=== PATIENT | female | born 1930 | race Caucasian/White ===

== ENCOUNTER 2016-06-27 13:44 | Emergency (ER) | payer MEDICARE ==
[2016-06-27 14:35] VITALS: TEMP 98.6; BMI 19.8
--- NOTE | 2016-06-27 15:57 | EDPRACDOC ---
- General Information Information Source: Patient Mode Of Arrival: Car - History of Present Illness Onset: 1 day Pain Location: Reports: RUQ, RLQ, Periumbilical Pain Context: Reports: Spontaneous Pain Severity: Moderate Pain Quality: Reports: Aching Pain Radiation: Reports: No Radiation Adult Abdominal History: Reports: Abdominal Surgery (appy). Denies: Urolithiasis, Bowel Obstruction Female Abdominal History: Denies: Abdominal Surgery, Urolithiasis Modifying Factors: improves with: Nothing Female Associated Signs & Symptoms: Reports: Frequency, Dysuria, Urgency Oral Intake: Normal <Darrell Alvarez - Last Filed: 06/27/16 19:23> <Ken Cuadra - Last Filed: 06/27/16 21:07> - General Information Chief Complaint: Abdominal Pain Stated Complaint: URINARY URGENCY/RETENTION Home Medications: Home Medications Allervite 1 tab PO DAILY 06/27/16 Ascorbic Acid [Vitamin C] 500 mg PO BID 06/27/16 Cholecalciferol (Vitamin D3) [Vitamin D3] 1,000 unit PO DAILY 06/27/16 Ciprofloxacin HCl [Cipro] 500 mg PO BID #20 tab 06/27/16 Ketorolac Tromethamine [Toradol] 10 mg PO Q6H PRN #20 tab 06/27/16 Ubidecarenone [Co Q-10] 75 mg PO DAILY 06/27/16 Vit A/C/E AC/Znox/Cupric Oxide [Eye Vitamin-Minerals Tablet] 1 tab PO DAILY 04/03 Allergies/Adverse Reactions: Allergies Allergy/AdvReac Type Severity Reaction Status Date / Time codeine Allergy Nausea only Verified 06/27/16 14:35 - History of Present Illness HPI: C/o inc urinary freq with urinary discomfort and periumbilical and right side abdo pain since last night. Denies fever, N/V/D, cp, sob, cough, sore throat. Med hx = none. Surgical hx = appy. (Darrell Alvarez) ED Past Medical History - History Reviewed Yes Nurses notes reviewed and agree except as marked - Patient Medical History Neurological History: Denies: Cerebrovascular Accident, Seizures Cardiac History: Denies: Coronary Artery Disease, Atrial Fibrillation Respiratory History: Denies: Asthma, Emphysema GI/ History: Denies: Renal Disease, Ulcer Musculoskeletal History: Denies: Gout, Rheumatoid Arthritis Psychological History: Denies: Depression, Anxiety Systemic History: Denies: Cancer, Diabetes Surgical History: Reports: Appendectomy (2 months) - Family Medical History Reports: Hypertension (Mother), Cancer (Sister lung CA), Stroke (Mother). Denies: Diabetes, Cardiac Disorders - Social Medical History Smoking Status: Never smoker <Darrell Alvarez - Last Filed: 06/27/16 19:23> EDM Review of Systems - Review of Systems ROS Negative Except as Marked: Yes All systems reviewed and were negative except as marked Gastrointestinal: Pain Genitourinary: Dysuria, Frequency <Darrell Alvarez - Last Filed: 06/27/16 19:23> - Physical Exam Constitutional: No apparent distress, Alert Oriented to: Time, Person, Place - HEENT Head: Normal Eye Exam: negative: Conjunctival Injection, Scleral Icterus Oropharynx: negative: Drooling TMJ: Normal Nose: No Symptoms Reported Neck: Normal - Respiratory/Cardiovascular Respiratory: Normal - CTA Cardiovascular: Normal - GI Auscultation: Normal Tenderness: Non tender - Musculoskeletal Back: CVA Tenderness (left mild) Extremities: Normal - Integumentary Skin: Normal - Neurologic Mood Description: Normal Thought: Coherent <Darrell Alvarez - Last Filed: 06/27/16 19:23> - Results 06/27/16 16:12 06/27/16 16:12 <Darrell Alvarez - Last Filed: 06/27/16 19:23> - Results 06/27/16 16:12 06/27/16 16:12 <Ken Cuadra - Last Filed: 06/27/16 21:07> - Results WBC 5.5 xk/uL (3.8-10.8) 06/27/16 16:12 RBC 3.27 xM/uL (4.20-5.40) L 06/27/16 16:12 Hgb 11.3 g/dL (12.0-16.0) L 06/27/16 16:12 Hct 32.9 % (36-47) L 06/27/16 16:12 MCV 101 fL (81-99) H 06/27/16 16:12 MCH 34.4 pg (27-32) H 06/27/16 16:12 MCHC 34.2 g/dl (33-36) 06/27/16 16:12 RDW 13.2 % (11.5-14.5) 06/27/16 16:12 Plt Count 214 xk/uL (130-400) 06/27/16 16:12 MPV 8.0 fL (7.4-10.4) 06/27/16 16:12 Neut % (Auto) 70.0 % (45-76) 06/27/16 16:12 Lymph % (Auto) 18.9 % (17-44) 06/27/16 16:12 [place] % (Auto) 9.6 % (3-10) 06/27/16 16:12 Eos % (Auto) 1.0 % (0-5) 06/27/16 16:12 Baso % (Auto) 0.5 % (0-2) 06/27/16 16:12 Absolute Neuts (auto) 3.85 xk/uL (1.7-8.2) 06/27/16 16:12 Absolute Lymphs (auto) 0.99 xk/uL (0.65-4.75) 06/27/16 16:12 Sodium 139 mEq/L (137-146) 06/27/16 16:12 Potassium 3.7 mEq/L (3.5-5.1) 06/27/16 16:12 Chloride 99 mEq/L (98-107) 06/27/16 16:12 Carbon Dioxide 32 mMOL/L (22-33) 06/27/16 16:12 Anion Gap 12 mEq/L (8-16) 06/27/16 16:12 BUN 14 MG/DL (7-17) 06/27/16 16:12 Creatinine 0.70 MG/DL (0.52-1.04) 06/27/16 16:12 Estimated GFR (MDRD) > 60 mL/min (>=60) 06/27/16 16:12 Glucose 106 MG/DL (70-99) H 06/27/16 16:12 Calculated Osmolality 269 MOs/Kg (270-290) L 06/27/16 16:12 Calcium 9.4 MG/DL (8.4-10.2) 06/27/16 16:12 Total Bilirubin 0.3 MG/DL (0.2-1.3) 06/27/16 16:12 AST 42 IU/L (14-36) H 06/27/16 16:12 ALT 34 IU/L (9-52) 06/27/16 16:12 Alkaline Phosphatase 41 IU/L (55-165) L 06/27/16 16:12 Total Protein 7.4 G/DL (6.3-8.2) 06/27/16 16:12 Albumin 4.2 G/DL (3.5-5.0) 06/27/16 16:12 Urine Color Yellow 06/27/16 15:35 Urine Clarity Hazy 06/27/16 15:35 Urine pH 5.0 (5.0-8.0) 06/27/16 15:35 Ur Specific [place] 1.025 (1.003-1.035) 06/27/16 15:35 Urine Protein 2+ (NEG/TRACE) H 06/27/16 15:35 Urine Glucose (UA) Neg (NEGATIVE) 06/27/16 15:35 Urine Ketones Neg (NEGATIVE) 06/27/16 15:35 Urine Occult Blood Neg (NEG/TRACE) 06/27/16 15:35 Urine Nitrite Neg (NEGATIVE) 06/27/16 15:35 Urine Bilirubin Neg (NEGATIVE) 06/27/16 15:35 Urine Urobilinogen <2.0 MG/DL (0-1) 06/27/16 15:35 Ur Leukocyte Esterase Trace (NEGATIVE) H 06/27/16 15:35 Urine RBC 20-30 (0-5) H 06/27/16 15:35 Urine WBC Tntc (0-5) H 06/27/16 15:35 Ur Epithelial Cells Occ 06/27/16 15:35 Urine Bacteria Few (NEG/FEW) 06/27/16 15:35 Hyaline Casts 5-10 (0-2) H 06/27/16 15:35 Urine Mucus Sm amt (NEG/OCC) 06/27/16 15:35 Lab Results 06/27/16 06/27/16 06/27/16 16:12 16:12 15:35 WBC 5.5 RBC 3.27 L Hgb 11.3 L Hct 32.9 L MCV 101 H MCH 34.4 H MCHC 34.2 RDW 13.2 Plt Count 214 MPV 8.0 Neut % (Auto) 70.0 Lymph % (Auto) 18.9 [place] % (Auto) 9.6 Eos % (Auto) 1.0 Baso % (Auto) 0.5 Absolute Neuts (auto) 3.85 Absolute Lymphs (auto) 0.99 Sodium 139 Potassium 3.7 Chloride 99 Carbon Dioxide 32 Anion Gap 12 BUN 14 Creatinine 0.70 Estimated GFR (MDRD) > 60 Glucose 106 H Calculated Osmolality 269 L Calcium 9.4 Total Bilirubin 0.3 AST 42 H ALT 34 Alkaline Phosphatase 41 L Total Protein 7.4 Albumin 4.2 Urine Color Yellow Urine Clarity Hazy Urine pH 5.0 Ur Specific [place] 1.025 Urine Protein 2+ H Urine Glucose (UA) Neg Urine Ketones Neg Urine Occult Blood Neg Urine Nitrite Neg Urine Bilirubin Neg Urine Urobilinogen <2.0 Ur Leukocyte Esterase Trace H Urine RBC 20-30 H Urine WBC Tntc H Ur Epithelial Cells Occ Urine Bacteria Few Hyaline Casts 5-10 H Urine Mucus Sm amt (Ken Cuadra) - Departure Disposition: Home Education/Counseling Given To: Patient Education/Counseling Given Regarding: Diagnosis, Treatment, Prognosis, Follow Up <Darrell Alvarez - Last Filed: 06/27/16 19:23> Decision Time to Discharge: 21:07 - Departure Yes I personally saw and evaluated the patient. <Ken Cuadra - Last Filed: 06/27/16 21:07> - Departure Condition: Stable Final Diagnosis: UTI (urinary tract infection) Qualifiers: Urinary tract infection type: site unspecified Hematuria presence: without hematuria Qualified Code(s): N39.0 - Urinary tract infection, site not specified Instructions: Acute Abdominal Pain (ED), Urinary Tract Infection in Women (ED) , Dysuria Referrals: None,No Provider [Primary Care Provider] - One Week Neil Reyes MD [Staff Physician] - One Week Prescriptions: Ciprofloxacin HCl [Cipro] 500 mg PO BID #20 tab Ketorolac Tromethamine [Toradol] 10 mg PO Q6H PRN #20 tab PRN Reason: Pain Additional Instructions: Follow up with primary care. Take cipro twice a day for 10 days for urinary tract infection. Take tylenol for pain. Return to ED for any new or worsening symptoms.
[2016-06-27 16:16] LABS: LEUKOCYTES/URINE TRACE (NEGATIVE); NITRITE/URINE NEG (NEGATIVE); RBC/URINE 20-30 (0-5); URINE OCCULT BLOOD NEG (NEG/TRACE); WBC/URINE TNTC (0-5)
[2016-06-27 16:19] LABS: AUTOMATED BASOPHIL 0.5 % (0-2); AUTOMATED LYMPH 18.9 % (17-44); AUTOMATED MONOCYTE 9.6 % (3-10)
[2016-06-27 16:33] LABS: BLOOD UREA NITROGEN 14 MG/DL (7-17); CALCIUM 9.4 MG/DL (8.4-10.2); CALCULATED OSMOLALITY 269 MOs/Kg (270-290); CHLORIDE 99 mEq/L (98-107); GLUCOSE 106 MG/DL (70-99); SODIUM LEVEL 139 mEq/L (137-146); TOTAL PROTEIN 7.4 G/DL (6.3-8.2)
--- NOTE | 2016-06-27 19:17 | DIRPT ---
CLINICAL DATA: Acute right upper quadrant abdominal pain. EXAM: US ABDOMEN LIMITED - RIGHT UPPER QUADRANT COMPARISON: None. FINDINGS: Gallbladder: No gallstones or wall thickening visualized. No sonographic Sullivan sign noted by hedge fund principal. Common bile duct: Diameter: 4 mm which is within normal limits. Liver: 7 mm echogenic focus is noted in right hepatic lobe. Within normal limits in parenchymal echogenicity. IMPRESSION: 7 mm echogenic rounded focus seen in right hepatic lobe most consistent with benign hemangioma in the absence of any history of malignancy. Followup ultrasound in 6 months is recommended to ensure stability. If the patient has a history of primary malignancy, then MRI is recommended to evaluate for possible metastatic disease. No other abnormality seen in the right upper quadrant of the abdomen. Electronically Signed By: Truong Blake Jr, M.D. On: 06/27/2016 19:14
[2016-06-27] MEDS ORDERED: Pharmacy Review for Metformin - IV Contrast Given SCH (20:00)
--- NOTE | 2016-06-27 20:48 | DIRPT ---
CLINICAL DATA: Acute upper abdominal pain. EXAM: CT ABDOMEN AND PELVIS WITH CONTRAST TECHNIQUE: Multidetector CT imaging of the abdomen and pelvis was performed using the standard protocol following bolus administration of intravenous contrast. CONTRAST: 80 mL of Isovue 370 intravenously. COMPARISON: CT scan of April 11, 2016. FINDINGS: Severe degenerative disc disease is noted at L5-S1. Stable 8 mm nodule is noted posteriorly in the left lower lobe. No gallstones are noted. The liver, spleen and pancreas appear normal. Adrenal glands appear normal. Stable parapelvic cysts are noted in left kidney. No hydronephrosis or renal obstruction is noted. Status post appendectomy. There is no evidence of bowel obstruction. Urinary bladder appears normal. Uterus and ovaries are unremarkable. No significant adenopathy is noted. IMPRESSION: Stable 8 mm nodule noted posteriorly in left lower lobe. If the patient is at high risk for bronchogenic carcinoma, follow-up chest CT at 3-6months is recommended. If the patient is at low risk for bronchogenic carcinoma, follow-up chest CT at 6-12 months is recommended. This recommendation follows the consensus statement: Guidelines for Management of Small Pulmonary Nodules Detected on CT Scans: A Statement from the Fleischner Society as published in Radiology 2005; 237:395-400. No acute abnormality seen in the abdomen or pelvis. Electronically Signed By: Truong Blake Jr, M.D. On: 06/27/2016 20:46
[2016-06-27 21:38] VITALS: BP 154/65; PULSE 54
== END 2016-06-27 21:38 | disposition home or self-care (01) ==
LOC: ED 13:44
DX: N39.0 Urinary tract infection, site not specified (principal)
CPT/HCPCS: 36415; 74177; 76705; 80053; 81001; 85025; 87077; 87086; 87186; 99284; A9698